=== PATIENT | female | born 1995 | race Caucasian/White ===

== ENCOUNTER 2016-06-08 16:45 | Emergency (ER) | payer OTHER ==
[2016-06-08 16:56] VITALS: BP 139/60; PULSE 81; TEMP 97.7; BMI 33.4
--- NOTE | 2016-06-08 17:08 | PDOC ---
Rapid Medical Evaluation Chief Complaint: Ear Problem Time Seen by Provider: 06/08/16 17:05 Medical Evaluation: Allergies Allergy/AdvReac Type Severity Reaction Status Date / Time No Known Allergies Allergy Verified 06/08/16 16:50 Vital Signs Temp Pulse Resp BP Pulse Ox 97.7 F 81 18 139/60 100 06/08/16 16:50 06/08/16 16:50 06/08/16 16:50 06/08/16 16:50 06/08/16 16:50 06/08/16 17:07 I have performed a brief in-person evaluation of this patient. The patient presents with a chief complaint of: left ear pain and left great toe nail pain Pertinent physical exam findings: no drainage from left ear, noted ingrown tonail to lateral aspect of left 1 st toe. No infection I have ordered the following: none The patient will proceed to fast track for further evaluation.
[2016-06-08] MEDS ORDERED: IBUPROFEN 600 MG TABLET (FP) PO ONE (17:50)
[2016-06-08] MEDS ORDERED: BACITRACIN 30 GM TUBE TOPICAL OINTMENT TP ONE (17:50)
[2016-06-08] MEDS ORDERED: BACITRACIN 30 GM TUBE TOPICAL OINTMENT ONE (17:52)
[2016-06-08] MEDS ORDERED: IBUPROFEN 400 MG TABLET (FP) PO ONE (17:53)
--- NOTE | 2016-06-08 17:54 | PDOC ---
History of Present Illness - General Chief Complaint: Ear Problem Stated Complaint: INGROWN TOENAIL/EAR PAIN Time Seen by Provider: 06/08/16 17:05 History Source: Patient Exam Limitations: No Limitations - History of Present Illness Initial Comments: 06/08/16 17:51 21 YR FEMALE WITH LEFT GREAT TOENAIL WITH DISCHARGE AND PAIN FOR 2 DAYS. PT STATES SOMEONE STEPPED ON THE TOENAIL TODAY MADE IT WORSE. no medical history Past History - Past Medical History Allergies/Adverse Reactions: Allergies Allergy/AdvReac Type Severity Reaction Status Date / Time No Known Allergies Allergy Verified 06/08/16 16:50 Home Medications: Ambulatory Orders NK [No Known Home Medication] 06/08/16 Asthma: No Cancer: No Cardiac Disorders: No Diabetes: No HTN: No Seizures: No Thyroid Disease: No Other medical history: NONE - Psycho/Social/Smoking Cessation Hx Anxiety: No Suicidal Ideation: No Smoking History: Never smoked Have you smoked in the past 12 months: No Information on smoking cessation initiated: No Hx Alcohol Use: No Drug/Substance Use Hx: No Substance Use Type: None Hx Substance Use Treatment: No Review of Systems - Review of Systems Able to Perform ROS?: Yes Is the patient limited Grenadian proficient: No Constitutional: No: Symptoms Reported HEENTM: No: Symptoms Reported Respiratory: No: Symptoms reported Cardiac (ROS): No: Symptoms Reported ABD/GI: No: Symptoms Reported : No: Symptoms Reported Musculoskeletal: Yes: Symptoms Reported, See HPI Integumentary: Yes: See HPI *Physical Exam - Vital Signs Last Vital Signs Temp Pulse Resp BP Pulse Ox 97.7 F 81 18 139/60 100 06/08/16 16:50 06/08/16 16:50 06/08/16 16:50 06/08/16 16:50 06/08/16 16:50 - Physical Exam General Appearance: Yes: Nourished, Appropriately Dressed HEENT: positive: EOMI, NIKKY, TMs Normal, Pharynx Normal Extremity: positive: Normal Capillary Refill, Other (left great toenail ingrown with pus drainage) Integumentary: positive: Normal Color, Dry, Warm Neurologic: positive: Fully Oriented, Alert, Normal Mood/Affect, Normal Response , Motor Strength 5/5 Procedures - Laceration/Wound Repair Left Toe Progress: 06/08/16 17:53 cleaned with betadine bacitracin and toe bandage placed Medical Decision Making - Medical Decision Making 06/08/16 17:53 cc: ingrown tail nail with infection will place on keflex, bactiracin and follow up [facility] on Saturday motrin for pain *DC/Admit/Observation/Transfer Diagnosis at time of Disposition: Ingrown nail of great toe of left foot - Discharge Dispostion Disposition: HOME Condition at time of disposition: Good - Referrals Referrals: Chloe Prince MD [Primary Care Provider] - Horace Diane MD [Staff Physician] - - Patient Instructions Printed Discharge Instructions: DI for Ingrown Toenail Additional Instructions: soak toe in warm salt water 3-4 times a day and dry completely then keep bandage in place with bacitracin ointment take keflex as directed 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
== END 2016-06-08 17:58 | disposition home or self-care (01) ==
LOC: JERFT 16:45 → JER 16:45 → JERFT 17:58
DX: L60.0 Ingrowing nail (principal)
CPT/HCPCS: 99281-25